=== PATIENT | male | born 2000 | race Caucasian/White ===

== ENCOUNTER 2020-09-02 18:17 | Outpatient (CLI) | payer OTHER, SELFPAY ==
--- NOTE | 2020-09-02 14:44 | DI.RAD_ITS ---
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 TECHNIQUE: 2D digital imaging was performed. COMPARISON: No exams were available for comparison FINDINGS: BONES: No acute fracture is present. There is a prominent external occipital protuberance. This acco unts for the skull deformity posteriorly. No acute fracture is seen. No suspicious lytic or sclerot ic lesions are seen. No associated soft tissue calcifications are seen. No periosteal reaction is p resent. SOFT TISSUE: Normal. IMPRESSION: Prominent external occipital protuberance which is a normal variant. DATA REPOSITORY: RADIATION DOSE DELIVERED:
== END 2020-09-02 18:37 ==
PROVIDERS: PCP Specialist/Technologist Athletic Trainer; Visit Provider Nurse Practitioner Family
DX: M85.2 Hyperostosis of skull (principal)
CPT/HCPCS: 70260